=== PATIENT | male | born 1950 | race Caucasian/White ===

== ENCOUNTER 2017-02-03 09:29 | Emergency (ER) | payer OTHER ==
[~2017-02-03] VITALS: Ht 162.6 cm; Wt 69.0 kg
[~2017-02-03 09:29] MED LIST: ALBU18HF INHALATION; AZIT250T94 PO; FLUT16SP24 NASAL; MED4DP PO; PRED20TA PO; SODI44SP11 NS; UDROBAC PO
[2017-02-03 09:42] VITALS: Ht 162.6 cm; Wt 69.0 kg
[2017-02-03] MEDS ORDERED: ASPIRIN 81 MG TAB PO STA (10:16)
[2017-02-03] MEDS ORDERED: ONDANSETRON 4 MG INJ IV STA (10:16)
[2017-02-03] MEDS ORDERED: morphine 2 MG INJ IV STA (10:16)
--- NOTE | 2017-02-03 10:25 | ERD ---
ER Documentation Chief Complaint Date/Time DATE: 02/03/17 TIME: 10:21 Chief Complaint Pt with CP, diarrhea, SOB and dizziness X 3 days. HPI Patient is a 66-year-old male who presents with multiple different complaints. He states that he is having intermittent chest pain in the center of his chest which he describes as a sharp chest pain lasting for only a few seconds at a time. He did recently fly back from [facility]. The chest pain does not make him feel short of breath even though this is documented on his chief complaint. He has not had any fever, coughing, congestion, rhinorrhea, sore throat, or otalgia. He denies any dizziness to me even though once again this is documented on his chief complaint. His second complaint is that his left shoulder hurts when he moves it. He says he lifted up his suitcase and his shoulder has been painful ever since then. The shoulder is painful when he moves it and the pain is constant. He denies any direct trauma to the shoulder. And he is not having any paresthesias or weakness. He is right-hand dominant. His third complaint is that he is having diarrhea ever since getting back from [facility]. It is a slightly runny stool and there has not been any blood in it. He is not having any excessive stomach cramping. Once again he denies any fever. He has not had any nausea, vomiting, dysuria, hematuria, flank or back pain. Nothing seems to make the symptoms better or worse. The remainder of the systems are negative. ROS All systems reviewed and are negative except as per history of present illness. Medications Home Meds Reported Medications Losartan Potassium* (Losartan Potassium*) Unknown Strength Tablet, PO DAILY, TAB 02/03/17 Atorvastatin Calcium (Atorvastatin Calcium) Unknown Strength Tablet, PO QHS, # 30 TAB 02/03/17 Metformin Hcl* (Metformin Hcl*) 500 Mg Tablet, 500 MG PO WITH BREAKFAST DINNE, # 30 TAB 02/03/17 Discontinued Scripts Prednisone* (Prednisone*) 20 Mg Tab, 40 MG PO DAILY for 4 Days, TAB Start 01/31/2016 Prov:BABITA MARIN MD 01/30/16 Albuterol Sulfate* (Ventolin HFA*) 18 Gm Hfa.aer.ad, 2 PUFF INHALATION Q4H, #1 INHALER Prov:BABITA MARIN MD 01/30/16 Azithromycin* (Zithromax*) 250 Mg Tablet, 250 MG PO .ZPACK DIRECTED, #6 TAB TAKE 500 MG (2 TABS) THE FIRST DAY THEN 250 MG (1 TAB) DAYS 2-5 Prov:BABITA MARIN MD 01/30/16 Methylprednisolone* (Medrol* DOSE PACK) 4 Mg/Dose-Pack Tab.ds.pk, 4 MG PO . DIRECTED for 7 Days, PACKET Prov:ELIOT GAMBLE NP 01/27/16 Guaifenesin-Codeine Phosphate* (Robitussin* AC) 5 Ml Syrup, 10 ML PO Q4H Y for COUGH for 3 Days, ML Prov:ELIOT GAMBLE NP 01/27/16 Fluticasone Propionate* (Flonase* Nasal) 50 Mcg/[place] - 16 Gm [place].susp, 1 SPRAY NASAL DAILY, #1 BOTTLE Prov:RALF DELGADILLO NP 03/31/15 Sodium Chloride (Saline Nasal [place]) 45 Ml [place], 2 SPR NS Q2H, #1 BOT Prov:RALF DELGADILLO NP 03/31/15 Allergies Allergies: Coded Allergies: No Known Allergy (Unverified , 02/03/17) PMhx/Soc History of Surgery: No Anesthesia Reaction: No Hx Neurological Disorder: No Hx Respiratory Disorders: No Hx Cardiac Disorders: No Hx Psychiatric Problems: No Hx Miscellaneous Medical Probl: Yes Hx Alcohol Use: No Hx Substance Use: No Hx Tobacco Use: No Physical Exam Vitals Vital Signs Date Time Temp Pulse Resp B/P Pulse Ox O2 Delivery O2 Flow Rate FiO2 02/03/17 09:42 100.3 109 18 159/73 96 Physical Exam Const: [] Well-developed well-nourished male sitting on the bed in no acute distress Head: Atraumatic normocephalic Eyes: Normal Conjunctiva ENT: Normal External Ears, Nose and Mouth. Neck: Full range of motion..~ No meningismus. Resp: Clear to auscultation bilaterally Cardio: Regular rate and rhythm, no murmurs mild tenderness to palpation anterior chest wall which he states reproduces his chest pain Abd: Soft, non tender, non distended. 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 of 5 Neur: Awake and alert, oriented 3, GCS of 15, grossly nonfocal, cranial nerves II through XII are intact Psych: Normal Mood and Affect Result Diagram: 02/03/17 1103 02/03/17 1103 Results 24 hrs Laboratory Tests Test 02/03/17 11:03 White Blood Count 11.810^3/ul Red Blood Count 4.8810^6/ul Hemoglobin 15.6g/dl Hematocrit 45.9% Mean Corpuscular Volume 94.1fl Mean Corpuscular Hemoglobin 32.0pg Mean Corpuscular Hemoglobin Concent 34.0g/dl Red Cell Distribution Width 13.0% Platelet Count 81463^3/UL Mean Platelet Volume 10.5fl Neutrophils % 81.0% Lymphocytes % 11.8% Monocytes % 5.7% Eosinophils % 0.6% Basophils % 0.5% Nucleated Red Blood Cells % 0.0/100WBC Neutrophils # 9.610^3/ul Lymphocytes # 1.410^3/ul Monocytes # 0.710^3/ul Eosinophils # 0.110^3/ul Basophils # 0.110^3/ul Nucleated Red Blood Cells # 0.010^3/ul Differential Comment AUTO w/SCAN Platelet Estimate PLT APPEAR DECREASED Prothrombin Time 12.5Sec Prothrombin Time Ratio 1.0 INR International Normalized Ratio 0.93 Activated Partial Thromboplast Time 29.2Sec Sodium Level 133mmol/L Potassium Level 3.6mmol/L Chloride Level 105mmol/L Carbon Dioxide Level 22mmol/L Anion Gap 10 Blood Urea Nitrogen 8mg/dl Creatinine 0.83mg/dl Glucose Level 77mg/dl Calcium Level 9.1mg/dl Total Bilirubin 0.6mg/dl Direct Bilirubin 0.00mg/dl Indirect Bilirubin 0.6mg/dl Aspartate Amino Transf (AST/SGOT) 49IU/L Alanine Aminotransferase (ALT/SGPT) 77IU/L Alkaline Phosphatase 78IU/L Troponin I < 0.012ng/ml Total Protein 7.2g/dl Albumin 4.0g/dl Globulin 3.20g/dl Albumin/Globulin Ratio 1.25 Current Medications Medications (Trade) Dose Ordered Sig/Galilea Route PRN Reason Start Time Stop Time Status Last Admin Dose Admin Aspirin (Aspirin) 162 mg ONCE STAT PO 02/03/17 10:16 02/03/17 10:22 DC 02/03/17 10:47 Morphine Sulfate (morphine) 2 mg ONCE STAT IV 02/03/17 10:16 02/03/17 10:22 DC 02/03/17 10:47 Ondansetron HCl (Zofran Inj) 4 mg ONCE STAT IV 02/03/17 10:16 02/03/17 10:22 DC 02/03/17 10:47 IV Flush 10 ml 10 ml STK-MED ONCE .ROUTE 02/03/17 12:19 02/03/17 12:20 DC Sodium Chloride (NS) 100 ml @ ud STK-MED ONCE .ROUTE 02/03/17 12:19 02/03/17 12:20 DC Iodixanol (Visipaque Locm) 100 ml STK-MED ONCE .ROUTE 02/03/17 12:19 02/03/17 12:20 DC Iodixanol (Visipaque Locm) 50 ml STK-MED ONCE .ROUTE 02/03/17 12:19 02/03/17 12:20 DC Procedures/MDM Differential includes but is not limited to chest pain, pulmonary embolus, musculoskeletal chest pain, diarrhea, parasitic diarrhea, shoulder pain, shoulder strain EKG: Rate/Rhythm: Normal Sinus Rhythm at 105 bpm without any evidence for acute ischemia, arrhythmia, or ectopy noted, no EKG available for comparison QRS, ST, T-waves: No changes consistent w/ acute ischemia Impression: No evidence of ischemia or arrhythmia CTA of the chest does not reveal any pulmonary embolus or any other acute cardiopulmonary process X-ray of the left shoulder shows some mild degenerative changes of the left AC joint Chest x-ray does not reveal any acute cardiopulmonary process per the radiologist 1313: Patient states he feels much better. He is clinically stable for discharge home and outpatient follow-up with his primary care physician. Departure Diagnosis: Primary Impression: Chest pain of uncertain etiology Additional Impressions: Acromioclavicular pain Laterality: left Qualified Code: M25.512 - Arthralgia of left acromioclavicular joint Diarrhea in adult patient Condition: Stable Additional Instructions: You may take the Ultram and Naprosyn as needed for your shoulder and chest pain. He may use the left shoulder as you feel comfortable. Please schedule a follow-up appointment with your primary care physician to discuss your shoulder and chest pain. You may also want to see your primary care physician to see if they need to test you for your diarrhea to rule out infectious causes. Return to the emergency department for any new or worsening symptoms. JANET HACKETT February 03, 2017 10:25
[2017-02-03] MEDS ORDERED: METF500T4 PO (10:58)
[2017-02-03] MEDS ORDERED: LOSA25TA5 PO (10:59)
[2017-02-03] MEDS ORDERED: ATOR10TA65 PO (10:59)
[2017-02-03 11:13] LABS: ADD SCAN DIFF NO
[2017-02-03 11:21] LABS: BASOPHIL # 0.1 10^3/ul (0.0-0.1); BASOPHILS % 0.5 % (0.0-2.0); EOSINOPHILS # 0.1 10^3/ul (0.0-0.5); EOSINOPHILS % 0.6 % (0.0-7.0); HEMATOCRIT 45.9 % (42.0-52.0); HEMOGLOBIN 15.6 g/dl (14.0-18.0); LYMPHOCYTES # 1.4 10^3/ul (0.8-2.9); LYMPHOCYTES % 11.8 % (15.0-51.0); MEAN CORPUSCULAR VOLUME 94.1 fl (82.0-101.0); MEAN PLATELET VOLUME 10.5 fl (7.4-10.4); MONOCYTE # 0.7 10^3/ul (0.3-0.9); MONOCYTES % 5.7 % (0.0-11.0); NEUTROPHIL # 9.6 10^3/ul (1.6-7.5); RED BLOOD COUNT 4.88 10^6/ul (4.70-6.10); WHITE BLOOD COUNT 11.8 10^3/ul (4.8-10.8)
--- NOTE | 2017-02-03 11:24 | RADRPT ---
PROCEDURE: XR Chest. CLINICAL INDICATION: Chest pain TECHNIQUE: Single frontal chest x-ray. COMPARISON: 01/30/2016 FINDINGS: No acute infiltrate, pleural effusion or pneumothorax is identified. Cardiomediastinal silhouette i s within normal limits. The osseous structures are unremarkable. IMPRESSION: 1. No evidence of acute cardiopulmonary process. RPTAT: PP .Darío Borrero MD, MD Date Time Electronically viewed and signed by .Darío Borrero MD, on 02/03/2017 11:23 .R/
--- NOTE | 2017-02-03 11:25 | RADRPT ---
PROCEDURE: XR Shoulder. CLINICAL INDICATION: Pain after lifting TECHNIQUE: 3 views of the left shoulder are available for review. COMPARISON: None available FINDINGS: The osseous structures, articular spaces, and surrounding soft tissues of the left shoulder are inta ct. No acute fracture or dislocation is seen. No radiopaque foreign body is identified. Acromiocla vicular joint osteophyte formation is noted. The visualized portions of the left clavicle and upper left rib cage are equally unremarkable. IMPRESSION: 1. No acute fracture or dislocation is identified. 2. Acromioclavicular joint degenerative changes are noted. RPTAT: PP .Darío Borrero MD, MD Date Time Electronically viewed and signed by .Darío Borrero MD, on 02/03/2017 11:25 .R/
[2017-02-03 11:37] LABS: INR 0.93; PARTIAL THROMBOPLASTIN TIME 29.2 Sec (25.0-35.0); PROTIME 12.5 Sec (12.2-14.2)
[2017-02-03 11:46] LABS: PLATELET COUNT 111 10^3/UL (140-415)
[2017-02-03 11:47] LABS: PLATELET ESTIMATE PLT APPEAR DECREASED
[2017-02-03 11:55] LABS: ALANINE AMINOTRANSFERASE 77 IU/L (13-69); ALBUMIN/GLOBULIN RATIO 1.25; ALKALINE PHOSPHATASE 78 IU/L (42-121); ANION GAP 10 (8-16); ASPARTATE AMINO TRANSFERASE 49 IU/L (15-46); BILIRUBIN,INDIRECT 0.6 mg/dl (0-1.1); BILIRUBIN,TOTAL 0.6 mg/dl (0.2-1.3); BLOOD UREA NITROGEN 8 mg/dl (7-20); CALCIUM 9.1 mg/dl (8.4-10.2); CARBON DIOXIDE 22 mmol/L (21-31); CHLORIDE 105 mmol/L (97-110); CREATININE 0.83 mg/dl (0.61-1.24); GLUCOSE 77 mg/dl (70-220); POTASSIUM 3.6 mmol/L (3.5-5.1); SODIUM 133 mmol/L (135-144); TOTAL PROTEIN 7.2 g/dl (6.1-8.1)
[2017-02-03 12:06] LABS: TROPONIN-I < 0.012 ng/ml (0.00-0.12)
[2017-02-03] MEDS ORDERED: IODIXANOL LOCM 50 ML BTL ONE (12:19)
[2017-02-03] MEDS ORDERED: SOD CHLORIDE 0.9% 100 ML ONE (12:19)
[2017-02-03] MEDS ORDERED: IODIXANOL LOCM 100 ML BTL ONE (12:19)
--- NOTE | 2017-02-03 12:49 | RADRPT ---
PROCEDURE: CTA Chest CLINICAL INDICATION: Chest pain TECHNIQUE: CTA of the chest was performed following the uncomplicated IV administration of 115 cc of Visipaque 320. Coronal and sagittal images were reconstructed from the axial data set. 3-D volu metric rendered post processing was performed as well. One or more of the following dose reduction techniques were used: automated exposure control, adjustment of the mA and/or kV according to patien t size, use of iterative reconstruction technique. CTDI = 11.45 mGy. DLP = 424.43 mGy-cm. COMPARISON: No prior studies are available for comparison. FINDINGS: No filling defect is present to suggest pulmonary embolism. There is no evidence for pulmonary sukh rial hypertension. There is minimal bibasilar atelectasis. No acute infiltrate, pleural effusion, pulmonary edema or p neumothorax is identified. Minimal pulmonary emphysema is noted. The central tracheobronchial tree is clear. No pulmonary nodule or mass is identified. The heart size is normal without pericardial effusion. Coronary arterial and aortic atherosclerotic calcifications are present. There is no thoracic aortic aneurysm or dissection. No mediastinal, h ilar, axillary or supraclavicular lymphadenopathy is identified. Visualized portions of the upper abdomen demonstrate no acute abnormality. The osseous structures a re remarkable for degenerative spondylosis of the spine. No osteolytic or osteoblastic lesion is see n. IMPRESSION: 1. No pulmonary embolism is identified. 2. There is minimal pulmonary emphysema. 3. No mass, lymphadenopathy, or focal acute infiltrate is identified. RPTAT: PP .Darío Borrero MD, Date Time Electronically viewed and signed by .Darío Borrero MD, on 02/03/2017 12:49 .R/
[2017-02-03] MEDS ORDERED: TRAM50TA2 PO (13:16)
[2017-02-03] MEDS ORDERED: NAPR-260 PO (13:16)
[2017-02-03] MEDS ORDERED: DIPH1TAB PO (13:17)
[2017-02-03 13:27] VITALS: BP 143/95; PULSE 99; RESP 20; TEMP 99.8
== END 2017-02-03 13:27 | disposition home or self-care (01) ==
LOC: E/R 09:29
DX: R07.9 Chest pain, unspecified (principal); M25.512 Pain in left shoulder; R19.7 Diarrhea, unspecified; R40.2142 Coma scale, eyes open, spontaneous, at arrival to emergency department; R40.2252 Coma scale, best verbal response, oriented, at arrival to emergency department; R40.2362 Coma scale, best motor response, obeys commands, at arrival to emergency department
CPT/HCPCS: 71010; 71275; 73030; 80053; 84484; 85025; 85610; 85730; 93005; 96374; 96375; 99285; J2270; J2405; Q9967